=== PATIENT | female | born 2000 | race Caucasian/White ===

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

== ENCOUNTER 2018-03-25 16:59 | Emergency (ER) | payer MEDICAID ==
[2018-03-25 19:56] LABS: CHLORIDE,CL 103 mmol/L (101-111); SODIUM,NA 140 mmol/L (135-145)
[2018-03-25 20:20] VITALS: BP 129/98
--- NOTE | 2018-03-27 08:05 | EDM.PDOC ---
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 No abdominal cramping. Patient states she is 6 weeks ago. LMP February 12. Patient states she had a miscarriage in October 16. LMP was February 12.She has an ultrasound scheduled for 05/06/18. Onset: Today Duration: Getting Worse Quality: Reports: Ache Severity: Moderate Improves with: Reports: None Worsens with: Reports: None Associated Symptoms: Reports: No Other Symptoms - Related Data Allergies Allergy/AdvReac Type Severity Reaction Status Date / Time amoxicillin [From Augmentin] Allergy Rash Verified 03/25/18 18:05 cefdinir [From Omnicef] Allergy Rash Verified 03/25/18 18:05 clavulanic acid Allergy Rash Verified 03/25/18 18:05 [From Augmentin] codeine Allergy Rash Verified 03/25/18 18:05 hydrocodone Allergy Hives Verified 03/25/18 18:05 tramadol Allergy Itching Verified 03/25/18 18:05 Home Meds: Home Meds Acetaminophen [Tylenol Extra Strength] 1,000 mg PO ASDIRECTED PRN 07/08/16 [ History] Past Medical History - Past Health History Medical/Surgical History: Denies Medical/Surgical History 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 (See Below) Other OB/BYN History: hx of misscarriage 10/16 Musculoskeletal History: Reports: Other (See Below) Other Musculoskeletal History: stress fx hx to right foot - Past Surgical History HEENT Surgical History: Reports: Myringotomy w Tube(s), Naso-Sinus Surgery, Tonsillectomy, Other (See Below) GI Surgical History: Reports: Appendectomy Social & Family History - Family History Family Medical History: Noncontributory - Tobacco Use Smoking Status *Q: Never Smoker - Caffeine Use Caffeine Use: Reports: None - Recreational Drug Use Recreational Drug Use: No ED ROS GENERAL - Review of Systems Review Of Systems: ROS reveals no pertinent complaints other than HPI. ED EXAM, RENAL/ - Physical Exam Exam: See Below Exam Limited By: No Limitations General Appearance: Alert, WD/WN, No Apparent Distress Eye Exam: Bilateral Eye: EOMI, Normal Inspection Ears: Normal External Exam, Normal Canal, Hearing Grossly Normal, Normal TMs Nose: Normal Inspection, Normal Mucosa, No Blood Throat/Mouth: Normal Inspection, Normal Lips, Normal Teeth, Normal Gums, Normal Oropharynx, Normal Voice, No Airway Compromise Head: Atraumatic, Normocephalic Neck: Normal Inspection, Supple, Non-Tender, Full Range of Motion Respiratory/Chest: No Respiratory Distress, Lungs Clear, Normal Breath Sounds, No Accessory Muscle Use, Chest Non-Tender Cardiovascular: Normal Peripheral Pulses, Regular Rate, Rhythm, No Edema, No Gallop, No JVD, No Murmur, No Rub GI/Abdominal: Normal Bowel Sounds, Soft, Non-Tender, No Organomegaly, No Distention, No Abnormal Bruit, No Mass (Female) Exam: Deferred Rectal (Female) Exam: Deferred Back Exam: Normal Inspection, Full Range of Motion, NT Extremities: Normal Inspection, Normal Range of Motion, Non-Tender, Normal Capillary Refill, No Pedal Edema Neurological: Alert, Oriented, CN II-XII Intact, Normal Cognition, Normal Gait, Normal Reflexes, No Motor/Sensory Deficits Psychiatric: Normal Affect, Normal Mood Skin Exam: Warm, Dry, Intact, Normal Color, No Rash Lymphatic: No Adenopathy Course - Vital Signs Last Recorded V/S: Last Vital Signs Temp 97.6 F 03/25/18 17:56 Pulse 81 03/25/18 17:56 Resp 16 03/25/18 17:56 BP 131/77 03/25/18 17:56 Pulse Ox 100 03/25/18 17:56 - Orders/Labs/Meds Orders: Active Orders 24 hr Category Date Time Status DRUG SCREEN URINE BIORAD [URCHEM] Stat Lab 03/25/18 18:33 Ordered TYPE AND SCREEN [BBK] Stat Lab 03/25/18 19:28 Received URINALYSIS W/MICROSCOPIC [UA W/MICROSCOPIC] [URIN] Stat Lab 03/25/18 18:33 Ordered Labs: Laboratory Tests 03/25/18 03/25/18 03/25/18 Range/Units 18:33 18:33 19:28 WBC 10.4 H (5.0-10.0) 10^3/uL RBC 4.99 (4.2-5.4) 10^6/uL Hgb 14.0 (12.0-16.0) g/dL Hct 41.2 (37.0-47.0) % MCV 82.6 (80-100) fL MCH 28.1 (27.0-34.0) pg MCHC 34.0 (33.0-35.0) g/dL Plt Count 321 (150-450) 10^3/uL Neut % (Auto) 62.3 (42.2-75.2) % Lymph % (Auto) 28.9 (20.5-50.1) % [place] % (Auto) 7.5 (2-8) % Eos % (Auto) 0.8 L (1.0-3.0) % Baso % (Auto) 0.5 (0.0-1.0) % Sodium (135-145) mmol/L Potassium (3.6-5.0) mmol/L Chloride (101-111) mmol/L Carbon Dioxide (21.0-31.0) mmol/L Anion Gap BUN (7-18) mg/dL Creatinine (0.6-1.3) mg/dL Est Cr Clr Drug Dosing mL/min Estimated GFR (MDRD) BUN/Creatinine Ratio Glucose (74-105) mg/dL Calcium (8.4-10.2) mg/dl Total Bilirubin (0.2-1.0) mg/dL AST (10-42) IU/L ALT (10-60) IU/L Alkaline Phosphatase (42-121) IU/L Total Protein (6.7-8.2) g/dl Albumin (3.2-5.5) g/dl Globulin Albumin/Globulin Ratio HCG, Qual HCG, Quant (0-25) mIU/ml Beta HCG, Quant mIU/ml Urine Color Other (YELLOW) Urine Appearance Slightly cloudy (CLEAR) Urine pH 6.5 (5.0-9.0) Ur Specific [employer] <= 1.005 (1.005-1.030) Urine Protein 30 H (NEGATIVE) Urine Glucose (UA) Negative (NEGATIVE) Urine Ketones Negative (NEGATIVE) Urine Occult Blood Large H (NEGATIVE) Urine Nitrite Negative (NEGATIVE) Urine Bilirubin Negative (NEGATIVE) Urine Urobilinogen 0.2 (0.2-1.0) mg/dL Ur Leukocyte Esterase Small H (NEGATIVE) Urine RBC >100 H /HPF Urine WBC 0-5 (0-5/HPF) /HPF Ur Epithelial Cells Moderate H /HPF Urine Bacteria Moderate H (0-FEW/HPF) /HPF Urine Opiates Screen Negative (NEGATIVE) Ur Oxycodone Screen Negative (NEGATIVE) Urine Methadone Screen Negative (NEGATIVE) Ur Barbiturates Screen Negative (NEGATIVE) U Tricyclic Antidepress Negative (NEGATIVE) Ur Phencyclidine Scrn Negative (NEGATIVE) Ur Amphetamine Screen Negative (NEGATIVE) U Methamphetamines Scrn Negative (NEGATIVE) Urine MDMA Screen Negative (NEGATIVE) U Benzodiazepines Scrn Negative (NEGATIVE) Urine Cocaine Screen Negative (NEGATIVE) U Marijuana (THC) Screen Negative (NEGATIVE) 03/25/18 03/25/18 03/25/18 Range/Units 19:28 19:28 19:28 WBC (5.0-10.0) 10^3/uL RBC (4.2-5.4) 10^6/uL Hgb (12.0-16.0) g/dL Hct (37.0-47.0) % MCV (80-100) fL MCH (27.0-34.0) pg MCHC (33.0-35.0) g/dL Plt Count (150-450) 10^3/uL Neut % (Auto) (42.2-75.2) % Lymph % (Auto) (20.5-50.1) % [place] % (Auto) (2-8) % Eos % (Auto) (1.0-3.0) % Baso % (Auto) (0.0-1.0) % Sodium 140 (135-145) mmol/L Potassium 3.2 L (3.6-5.0) mmol/L Chloride 103 (101-111) mmol/L Carbon Dioxide 31.0 (21.0-31.0) mmol/L Anion Gap 9.2 BUN 10 (7-18) mg/dL Creatinine 0.6 (0.6-1.3) mg/dL Est Cr Clr Drug Dosing 141.18 mL/min Estimated GFR (MDRD) > 60 BUN/Creatinine Ratio 16.66 Glucose 85 (74-105) mg/dL Calcium 9.6 (8.4-10.2) mg/dl Total Bilirubin 0.5 (0.2-1.0) mg/dL AST 20 (10-42) IU/L ALT 18 (10-60) IU/L Alkaline Phosphatase 81 (42-121) IU/L Total Protein 8.0 (6.7-8.2) g/dl Albumin 4.5 (3.2-5.5) g/dl Globulin 3.5 Albumin/Globulin Ratio 1.29 HCG, Qual Positive HCG, Quant 28 H (0-25) mIU/ml Beta HCG, Quant < 1050 mIU/ml Urine Color (YELLOW) Urine Appearance (CLEAR) Urine pH (5.0-9.0) Ur Specific [employer] (1.005-1.030) Urine Protein (NEGATIVE) Urine Glucose (UA) (NEGATIVE) Urine Ketones (NEGATIVE) Urine Occult Blood (NEGATIVE) Urine Nitrite (NEGATIVE) Urine Bilirubin (NEGATIVE) Urine Urobilinogen (0.2-1.0) mg/dL Ur Leukocyte Esterase (NEGATIVE) Urine RBC /HPF Urine WBC (0-5/HPF) /HPF Ur Epithelial Cells /HPF Urine Bacteria (0-FEW/HPF) /HPF Urine Opiates Screen (NEGATIVE) Ur Oxycodone Screen (NEGATIVE) Urine Methadone Screen (NEGATIVE) Ur Barbiturates Screen (NEGATIVE) U Tricyclic Antidepress (NEGATIVE) Ur Phencyclidine Scrn (NEGATIVE) Ur Amphetamine Screen (NEGATIVE) U Methamphetamines Scrn (NEGATIVE) Urine MDMA Screen (NEGATIVE) U Benzodiazepines Scrn (NEGATIVE) Urine Cocaine Screen (NEGATIVE) U Marijuana (THC) Screen (NEGATIVE) Departure - Departure Time of Disposition: 20:14 Disposition: Home, Self-Care 01 Condition: Fair Clinical Impression: Threatened - Discharge Information Instructions: Threatened Miscarriage, [id number] Referrals: Gloria Hsu MD [Primary Care Provider] - Forms: ED Department Discharge Additional Instructions: Return to ER with any increase in bleeding, abdominal cramping, or further problems Drink plenty of fluids Follow up with your primary care facility next week - My Orders Last 24 Hours: My Active Orders 03/25/18 18:33 DRUG SCREEN URINE BIORAD [URCHEM] Stat URINALYSIS W/MICROSCOPIC [UA W/MICROSCOPIC] [URIN] Stat 03/25/18 19:28 TYPE AND SCREEN [BBK] Stat - Assessment/Plan Last 24 Hours: My Active Orders 03/25/18 18:33 DRUG SCREEN URINE BIORAD [URCHEM] Stat URINALYSIS W/MICROSCOPIC [UA W/MICROSCOPIC] [URIN] Stat 03/25/18 19:28 TYPE AND SCREEN [BBK] Stat I have read and agree with the documentation that has been completed regarding this visit. By signing this record, I attest that the documentation was completed in my physical presence and is an accurate record of the encounter.
== END 2018-03-25 20:23 | disposition home or self-care (01) ==
LOC: DL.ED 16:59
DX: O20.0 Threatened abortion (principal); Z88.1 Allergy status to other antibiotic agents; Z88.5 Allergy status to narcotic agent; Z3A.01 Less than 8 weeks gestation of pregnancy
CPT/HCPCS: 36415; 80053; 80305; 81001; 84702; 84703; 85025; 86850; 86900; 86901; 99284

== ENCOUNTER 2019-02-02 23:23 | Emergency (ER) | payer MEDICAID ==
[2019-02-02 23:32] VITALS: BP 120/60
--- NOTE | 2019-02-02 23:40 | EDM.PDOC ---
ED HPI GENERAL MEDICAL PROBLEM - General Chief Complaint: ENT Problem Stated Complaint: SICK [id number] Time Seen by Provider: 02/02/19 23:35 Source of Information: Reports: Patient History Limitations: Reports: No Limitations - History of Present Illness INITIAL COMMENTS - FREE TEXT/NARRATIVE: This 18 yo female patient reports to the ED with a sore throat and chills. The patient reports her symptoms started yesterday at 1530 and have continued since that time. The patient reports she has been taking ibuprofen for temporary symptom relief. 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 - Related Data Allergies Allergy/AdvReac Type Severity Reaction Status Date / Time acetaminophen [From Percocet] Allergy Unknown Hives Verified 02/02/19 23:29 amoxicillin [From Augmentin] Allergy Rash Verified 02/02/19 23:29 cefdinir [From Omnicef] Allergy Rash Verified 02/02/19 23:29 clavulanic acid Allergy Rash Verified 02/02/19 23:29 [From Augmentin] codeine Allergy Rash Verified 02/02/19 23:29 hydrocodone Allergy Hives Verified 02/02/19 23:29 oxycodone [From Percocet] Allergy Hives Verified 02/02/19 23:29 tramadol Allergy Itching Verified 02/02/19 23:29 clorox wipes Allergy Hives Uncoded 02/02/19 23:29 Home Meds: Home Meds Sertraline [Zoloft] 1 tab PO DAILY 12/24/18 [History] [id number]/FA/Omega3/Dha/Fish Oil [ Gummies] 1 tab PO DAILY 12/25/18 [ History] Docusate Sodium [Colace] 50 mg PO BID PRN 02/02/19 [History] Ibuprofen 800 mg PO Q6H PRN 02/02/19 [History] Iron 18 mg PO DAILY 02/02/19 [History] Past Medical History - Past Health History Medical/Surgical History: Denies Medical/Surgical History HEENT History: Reports: None Cardiovascular History: Reports: None Respiratory History: Reports: Asthma Gastrointestinal History: Reports: GERD Genitourinary History: Reports: None CLOUD ARCHITECT History: Reports: , Spontaneous Other CLOUD ARCHITECT History: hx of misscarriage 10/16 Musculoskeletal History: Reports: Other (See Below) Other Musculoskeletal History: stress fx hx to right foot Neurological History: Reports: Other (See Below) Other Neuro History: Asperger's high functioning Psychiatric History: Reports: Anxiety, Autism, Depression, OCD, Other (See Below ) Other Psychiatric History: aspergers, sensory integration disorder Endocrine/Metabolic History: Reports: None Hematologic History: Reports: Anemia Immunologic History: Reports: None Oncologic (Cancer) History: Reports: None Dermatologic History: Reports: Eczema - Infectious Disease History Infectious Disease History: Reports: None - Past Surgical History Head Surgeries/Procedures: Reports: None HEENT Surgical History: Reports: Myringotomy w Tube(s), Naso-Sinus Surgery, Oral Surgery, Tonsillectomy GI Surgical History: Reports: Appendectomy Musculoskeletal Surgical History: Reports: None Social & Family History - Family History Family Medical History: Noncontributory - Tobacco Use Smoking Status *Q: Never Smoker - Caffeine Use Caffeine Use: Reports: Soda, Tea - Recreational Drug Use Recreational Drug Use: No ED ROS ENT - Review of Systems Review Of Systems: ROS reveals no pertinent complaints other than HPI. ED EXAM, ENT - Physical Exam Exam: See Below Exam Limited By: No Limitations General Appearance: Alert, WD/WN, Mild Distress Eye Exam: Bilateral Eye: EOMI, Normal Inspection, PERRL Ears: Normal External Exam, Normal Canal, Hearing Grossly Normal, Normal TMs Nose: Normal Inspection, Normal Mucousa, No Blood Mouth/Throat: Normal Gums, Normal Teeth, Pharyngeal Erythema (slight) Head: Atraumatic, Normocephalic Neck: Normal Inspection, Supple, Non-Tender, Full Range of Motion Respiratory/Chest: No Respiratory Distress, Lungs Clear, Normal Breath Sounds, No Accessory Muscle Use, Chest Non-Tender Cardiovascular: Normal Peripheral Pulses, Regular Rate, Rhythm, No Edema, No Gallop, No JVD, No Murmur, No Rub GI/Abdominal: Normal Bowel Sounds, Soft, Non-Tender, No Organomegaly, No Distention, No Abnormal Bruit, No Mass (Female) Exam: Deferred Rectal (Female) Exam: Deferred Back: Normal Inspection, Full Range of Motion Extremities: Normal Inspection, Normal Range of Motion, Non-Tender, No Pedal Edema, Normal Capillary Refill Neurological: Alert, Oriented, CN II-XII Intact, Normal Cognition, Normal Gait, Normal Reflexes, No Motor/Sensory Deficits Psychiatric: Normal Affect, Normal Mood Skin: Warm, Dry, Intact, Normal Color, No Rash Lymphatic: No Adenopathy Course - Vital Signs Last Recorded V/S: Last Vital Signs Temp 35.9 C 02/02/19 23:31 Pulse 49 L 02/02/19 23:31 Resp 18 02/02/19 23:31 BP 120/60 02/02/19 23:31 Pulse Ox 100 02/02/19 23:31 - Orders/Labs/Meds Orders: Active Orders 24 hr Category Date Time Status CULTURE STREP A CONFIRMATION [RM] Stat Lab 02/02/19 23:32 Results STREP SCRN A RAPID W CULT CONF [RM] Stat Lab 02/02/19 23:33 Ordered Departure - Departure Time of Disposition: 23:47 Disposition: Home, Self-Care 01 Condition: Fair Clinical Impression: Sore throat (viral) - Discharge Information *PRESCRIPTION DRUG MONITORING PROGRAM REVIEWED*: Not Applicable *COPY OF PRESCRIPTION DRUG MONITORING REPORT IN PATIENT RADHA: Not Applicable Instructions: Sore Throat, [id number] Forms: ED Department Discharge Care Plan Goals: The patient was advised of the examination and lab results during the visit. The patient should be encouraged to increase their oral fluid intake over the next 48 hours. The patient may continue to use [id number] medications for temporary symptom relief. If the patient has any additional symptoms or concerns , the patient should either return to the emergency department or follow-up with her primary care facility. - My Orders Last 24 Hours: My Active Orders 02/02/19 23:32 CULTURE STREP A CONFIRMATION [RM] Stat 02/02/19 23:33 STREP SCRN A RAPID W CULT CONF [RM] Stat - Assessment/Plan Last 24 Hours: My Active Orders 02/02/19 23:32 CULTURE STREP A CONFIRMATION [RM] Stat 02/02/19 23:33 STREP SCRN A RAPID W CULT CONF [RM] Stat
== END 2019-02-02 23:51 | disposition home or self-care (01) ==
LOC: DL.ED 23:23
DX: J02.9 Acute pharyngitis, unspecified (principal); Z88.1 Allergy status to other antibiotic agents; Z88.8 Allergy status to other drugs, medicaments and biological substances; Z88.5 Allergy status to narcotic agent; Z88.6 Allergy status to analgesic agent
CPT/HCPCS: 87081; 87430; 99282

== ENCOUNTER 2020-07-18 12:11 | Day surgery (SDC) | payer MEDICAID ==
[2020-07-18] MEDS ORDERED: Glycopyrrolate 0.2 MG/ML 2 ML SDV IV ONE (12:12)
[2020-07-18] MEDS ORDERED: Dexamethasone 4 MG/ML SDV IV ONE (12:12)
[2020-07-18] MEDS ORDERED: Propofol 200 MG/20 ML SDV IV ONE (12:12)
[2020-07-18] MEDS ORDERED: Midazolam 1 MG/ML 2 ML SDV IV ONE (12:12)
[2020-07-18] MEDS ORDERED: Oxytocin/Normal Saline 30 UNIT/500 ML BAG IV ONE (12:12)
[2020-07-18] MEDS ORDERED: fentaNYL 100 MCG/2 ML SDV IV ONE (12:12)
[2020-07-18] MEDS ORDERED: Ketorolac 30 MG/ML SDV IVPUSH ONE (12:12)
[2020-07-18] MEDS ORDERED: Lactated Ringers 1,000 ML IV ONE (12:12)
[2020-07-18] MEDS ORDERED: Ondansetron 4 MG/2 ML SDV IV ONE (12:12)
[2020-07-18] MEDS ORDERED: Oxytocin/Normal Saline 30 UNIT/500 ML BAG ONE (13:13)
[2020-07-18] MEDS ORDERED: Lactated Ringers 1,000 ML IV SCH ×3 (13:15→14:15)
[2020-07-18] MEDS ORDERED: Ferric Subsulfate Topical Soln 8 GM (8 ML) Bottle ONE (13:21)
[2020-07-18] MEDS ORDERED: Silver Nitrate Applicator Each ONE (13:22)
[2020-07-18] MEDS ORDERED: Scopolamine 1.5 MG Transdermal Patch ONE (13:44)
[2020-07-18] MEDS ORDERED: Scopolamine 1.5 MG Transdermal Patch TOP ONE (13:45)
[2020-07-18] MEDS ORDERED: Sodium Chloride 0.9% 10 ML Syringe FLUSH PRN (14:14)
[2020-07-18] MEDS ORDERED: Oxytocin/Normal Saline 30 UNIT/500 ML BAG IV SCH (14:15)
[2020-07-18] MEDS ORDERED: ceFAZolin 2 GM in Premix Bag 1 BAG IV ONE (14:30)
[2020-07-18 17:29] VITALS: BP 110/53; PULSE 54
--- NOTE | 2020-07-21 20:03 | PCM.OPNOTE ---
- General Post-Op/Procedure Note Date of Surgery/Procedure: 07/18/20 Operative Procedure(s): Suction Dilitation and Curettage Findings: Retained products of conception. Uterine sound 6 cm pre-procedure, 14 cm post-procedure. Pre Op Diagnosis: Incomplete miscarriage. Retained products of conception. Post-Op Diagnosis: Completed miscarriage. Anesthesia Technique: General LMA Primary Surgeon: Wendi Santana Anesthesia Provider: Chele Harris Pathology: Retained products of conception. Fluid Replacement, Intraop: 1,000 EBL in mLs: 250 Complications: None Condition: Good Free Text/Narrative:: CONSENT: Discussed with patient the indications, risks, benefits, and potential complications of suction dilatation and curettage. Discussed risk of infection and plan for pre-operative antibiotics. Risk of bleeding to the point of needing a transfusion and it's inherent risks. Risk of injury to the urethra, vagina, cervix, uterus, and if perforation intestines and other adjacent structures. Risk of scarring making future pregnancies high risk or even not possible. Questions answered and she agreed to proceed. Consent signed and can be found in her chart. PROCEDURE: Patient brought to the OR and general anesthesia obtained. Dorsal lithotomy position and vaginal prep completed. Straight catheter to empty the bladder performed. Sterile drapes applied. Weighted speculum and right angle retractor placed to visualize the cervix. Single toothed tenaculum placed. Uterus sounded to 6cm. Dilators placed in sequential order until the largest one used. Eight mm curved suction catheter used to make the initial suction and curettage passes. Next the 4 then 6 mm sharp curette tools used to curette the uterus. Suction catheter used again for the greatest removal of tissue. Sharp curette passed one more time and uterine cri felt in all 4 quadrants. Suction catheter used for one final pass and removed. Hemostasis achieved. Single toothed tenaculum removed and tenaculum site bleeding controlled with pressure. Patient tolerated the procedure well and she was taken to the PACU in good condition. COMPLICATIONS: none.
== END 2020-07-18 17:10 | disposition home or self-care (01) ==
LOC: DL.SDS 12:11
PROVIDERS: ATTEND Family Medicine
DX: O03.9 Complete or unspecified spontaneous abortion without complication (principal); F41.9 Anxiety disorder, unspecified; K21.9 Gastro-esophageal reflux disease without esophagitis; F32.9 Major depressive disorder, single episode, unspecified; E66.9 Obesity, unspecified; Z88.0 Allergy status to penicillin; Z01.812 Encounter for preprocedural laboratory examination; Z20.828 Contact with and (suspected) exposure to other viral communicable diseases; Z88.5 Allergy status to narcotic agent; Z88.6 Allergy status to analgesic agent; Z88.8 Allergy status to other drugs, medicaments and biological substances
CPT/HCPCS: 00940; A9270-GY; J0690; J1100; J1885; J2250; J2405; J2590; J2704; J3010; J3490; J7120; U0002

== ENCOUNTER 2022-01-03 21:59 | Emergency (ER) | payer MEDICAID | END 2022-01-03 22:51 | disposition left against medical advice (07) | LOC: DL.ED 21:59 | DX: Z53.21 Procedure and treatment not carried out due to patient leaving prior to being seen by health care provider (principal) ==

== ENCOUNTER 2022-10-06 10:05 | Inpatient (IN) | payer MEDICAID ==
[~2022-10-06 10:05] MED LIST: Carboprost Tromethamine 250 MCG/1 ML Amp IM PRN; Lactated Ringers 1,000 ML IV SCH; Methylergonovine 0.2 MG Tab PO PRN; Oxytocin 10 Units/1 ML SDV IM PRN; Oxytocin/Normal Saline 30 UNIT/500 ML BAG IV SCH; Sodium Chloride 0.9% 10 ML Syringe FLUSH PRN; Sodium Chloride 0.9% 10 ML Syringe FLUSH SCH; Tranexamic Acid 1,000 MG in Sodium Chloride 0.9% 100 ML IV PRN
[2022-10-06] MEDS: Lactated Ringers 1,000 ML IV SCH ×2 (10:30→11:32)
[2022-10-06] MEDS ORDERED: Oxytocin/Normal Saline 30 UNIT/500 ML BAG ONE (11:54)
[2022-10-06] MEDS ORDERED: ceFAZolin 2 GM in Premix Bag 1 BAG IV ONE (12:00)
[2022-10-06] MEDS ORDERED: Citric Acid/Sodium Citrate Solution 30 ML Cup ONE (12:00)
[2022-10-06] MEDS: Citric Acid/Sodium Citrate Solution 30 ML Cup PO ONE ×2 (12:04→17:30)
[2022-10-06] MEDS ORDERED: Lidocaine 1% 10 ML MDV ONE (12:47)
[2022-10-06] MEDS ORDERED: Lidocaine 1% 50 MG/5 ML Syringe ONE (12:47)
[2022-10-06] MEDS ORDERED: Acetaminophen/oxyCODONE 325-5 MG Tab PO PRN ×2 (13:58)
[2022-10-06] MEDS ORDERED: Naloxone 2 MG/2 ML Syringe IVPUSH PRN (13:58)
[2022-10-06] MEDS ORDERED: Misoprostol 400 MCG (4 X 100 MCG TAB) RECTAL PRN (13:58)
[2022-10-06] MEDS ORDERED: Acetaminophen 325 MG Tab PO PRN (13:58)
[2022-10-06] MEDS ORDERED: Carboprost Tromethamine 250 MCG/1 ML Amp IM PRN (13:58)
[2022-10-06] MEDS ORDERED: Ondansetron 4 MG/2 ML SDV IVPUSH PRN (13:58)
[2022-10-06] MEDS ORDERED: ePHEDrine 50 MG/ML SDV IVPUSH PRN (13:58)
[2022-10-06] MEDS ORDERED: diphenhydrAMINE 50 MG/ML SDV IVPUSH PRN (13:58)
[2022-10-06] MEDS ORDERED: Methylergonovine 0.2 MG/1 ML Amp IM PRN (13:58)
[2022-10-06] MEDS ORDERED: Lactated Ringers 1,000 ML IV SCH (14:00)
[2022-10-06] MEDS: Simethicone 80 MG Tab.Chew PO SCH ×2 (17:53→21:59)
[2022-10-06] MEDS: Ferrous Sulfate 325 MG Tab PO SCH (17:53)
[2022-10-06] MEDS: Ketorolac 30 MG/ML SDV IVPUSH SCH (19:44)
[2022-10-07] MEDS: Ketorolac 30 MG/ML SDV IVPUSH SCH ×2 (01:18→07:50)
[2022-10-07] MEDS: Docusate Sodium 100 MG Cap PO PRN ×2 (07:51→22:33)
[2022-10-07] MEDS: Prenatal Multivitamin with Calcium/Folic Acid/Iron Tab PO SCH ×2 (07:51→12:17)
[2022-10-07] MEDS: Ferrous Sulfate 325 MG Tab PO SCH ×3 (07:51→18:44)
[2022-10-07] MEDS: Simethicone 80 MG Tab.Chew PO SCH ×5 (07:51→22:33)
[2022-10-07] MEDS: Acetaminophen 500 MG Tab PO PRN ×3 (07:58→22:33)
[2022-10-07] MEDS: FLUoxetine 10 MG Cap PO SCH (12:17)
[2022-10-07] MEDS: Ibuprofen 800 MG Tab PO PRN (16:42)
[2022-10-08] MEDS: Ibuprofen 800 MG Tab PO PRN ×3 (00:42→18:35)
[2022-10-08] MEDS: Acetaminophen 500 MG Tab PO PRN ×3 (03:51→22:09)
[2022-10-08] MEDS: Simethicone 80 MG Tab.Chew PO SCH ×4 (08:39→20:54)
[2022-10-08] MEDS: FLUoxetine 10 MG Cap PO SCH (08:39)
[2022-10-08] MEDS: Prenatal Multivitamin with Calcium/Folic Acid/Iron Tab PO SCH (08:39)
[2022-10-08] MEDS: Ferrous Sulfate 325 MG Tab PO SCH ×2 (08:39→18:35)
[2022-10-08] MEDS: Docusate Sodium 100 MG Cap PO PRN (20:54)
[2022-10-09] MEDS: Ibuprofen 800 MG Tab PO PRN ×2 (02:38→13:08)
[2022-10-09] MEDS: Ferrous Sulfate 325 MG Tab PO SCH (09:17)
[2022-10-09] MEDS: Acetaminophen 500 MG Tab PO PRN (09:17)
[2022-10-09] MEDS: FLUoxetine 10 MG Cap PO SCH (09:17)
[2022-10-09] MEDS: Docusate Sodium 100 MG Cap PO PRN (09:17)
[2022-10-09] MEDS: Simethicone 80 MG Tab.Chew PO SCH ×2 (09:17→13:08)
[2022-10-09] MEDS: Prenatal Multivitamin with Calcium/Folic Acid/Iron Tab PO SCH (09:17)
[2022-10-09 10:32] VITALS: BP 128/81; PULSE 81
[2022-10-09] MEDS ORDERED: Ondansetron 4 MG/2 ML SDV IV ONE (17:49)
[2022-10-09] MEDS ORDERED: Ketorolac 30 MG/ML SDV IVPUSH ONE (17:49)
[2022-10-09] MEDS ORDERED: Sodium Chloride 0.9% 10 ML Syringe IV ONE (17:49)
[2022-10-09] MEDS ORDERED: Phenylephrine 1% 10 MG/ML SDV IV ONE (17:49)
[2022-10-09] MEDS ORDERED: Dexamethasone 4 MG/ML SDV IV ONE (17:49)
[2022-10-09] MEDS ORDERED: Oxytocin 10 Units/1 ML SDV IV ONE (17:49)
[2022-10-09] MEDS ORDERED: Dexmedetomidine 200 MCG/2 ML SDV IV ONE (17:49)
== END 2022-10-09 17:50 | disposition home or self-care (01) | DRG 787 ==
LOC: UNDOADMOB 10:05 → DL.OB 10:05 → OBSVTOIN 13:20 → DL.OB 13:20
PROVIDERS: ADMIT Family Medicine; ATTEND Family Medicine
PROC: 10D00Z1 Extraction of Products of Conception, Low, Open Approach (ICD-10-PCS; principal; 2022-10-06)
DX: O34.211 Maternal care for low transverse scar from previous cesarean delivery (principal); D62 Acute posthemorrhagic anemia; O72.1 Other immediate postpartum hemorrhage; O13.4 Gestational [pregnancy-induced] hypertension without significant proteinuria, complicating childbirth; O99.214 Obesity complicating childbirth; O99.02 Anemia complicating childbirth; O99.344 Other mental disorders complicating childbirth; F41.9 Anxiety disorder, unspecified; Z37.0 Single live birth; Z3A.37 37 weeks gestation of pregnancy; Z86.16 Personal history of COVID-19; Z28.9 Immunization not carried out for unspecified reason
CPT/HCPCS: 01961; 36415; 59025; 82565; 82570; 84156; 84450; 84460; 84520; 85025; 85027; 86850; 86900; 86901; A9270-GY; J0690; J1100; J1885; J2370; J2405; J2590; J3490; J7120

== ENCOUNTER 2023-03-01 20:55 | Emergency (ER) | payer MEDICAID ==
[2023-03-01 21:21] VITALS: BP 129/76; PULSE 79
[2023-03-01] MEDS ORDERED: Sodium Chloride 0.9% 10 ML Syringe FLUSH PRN (21:24)
[2023-03-01 21:45] LABS: ANION GAP 13.2 mEq/L (7-13)
[2023-03-01] MEDS ORDERED: Ketorolac 30 MG/ML SDV IVPUSH ONE (22:12)
== END 2023-03-01 22:56 | disposition home or self-care (01) ==
LOC: DL.ED 20:55
DX: R05.1 Acute cough (principal); M25.512 Pain in left shoulder; I10 Essential (primary) hypertension; E66.9 Obesity, unspecified; Z68.37 Body mass index [BMI] 37.0-37.9, adult; Z88.1 Allergy status to other antibiotic agents; Z88.5 Allergy status to narcotic agent; Z88.8 Allergy status to other drugs, medicaments and biological substances; Z91.048 Other nonmedicinal substance allergy status; Z20.822 Contact with and (suspected) exposure to COVID-19
CPT/HCPCS: 36415; 71045; 80053; 83605; 84484; 85025; 85610; 85730; 86140; 87635; 87804; 93005; 93010; 96374; 99284; J1885; J3490; U0002